=== PATIENT | female | born 1980 | race Caucasian/White ===

== ENCOUNTER 2016-03-26 11:51 | Emergency (ER) | payer OTHER ==
[~2016-03-26] VITALS: Ht 172.7 cm; Wt 59.1 kg
[2016-03-26 11:56] VITALS: BP 132/84; PULSE 98; RESP 20; O2SAT 98
--- NOTE | 2016-03-26 12:06 | ED.REPORT ---
HPI-Psychiatric Illness Date of Service Mar 26, 2016 ED Provider: History of Present Illness: needs to get into a treatment place for meth. was going to do outpatient 1 year ago and outpatient treat at [facility]. yuly is primarycare. just started at [facility], before that [facility] in [place]. last use this am around 7 snort and smoke use since she was 21 with a 5 year span of being clean. was doing steady use for the last 2 years recent break up with boyfriend sad about that. was outside talking and she felt sister was not listing, she threatened to kill self and went into the bathroom and slit her wrist on the left. unknown tdap. . At present she does not feel she will harm self. Is on seroquel 300 mg in evening. New prescription with taper up starting on 03/15/2016. Has almost full bottle. Nursing Notes Chief Complaint: Psychiatric Complaint Nursing Notes Reviewed: Yes Allergies: Coded Allergies: No Known Allergies (Unverified , 03/26/16) Scheduled Quetiapine Fumarate (Quetiapine Fumarate) 100 Mg Tablet 300 MG PO HS General Time Seen by MD: 12:05 Chief Complaint Other (want s treatment) Hx Obtained From: Patient Onset Occurred: 5 - 8 hours ago Risk-Psychiatric Illness Suicide Risk Stratification Suicide Risk Factors - Adult: : Alcohol use: Previous attempt (tried to cut wrists last july 2015, stayed with a friend, no treatment at the time): Substance abuseNo: Access to firearms, Close associate suicide, Family Hx of Suicide, Prior psych admission RF Statements: Risk factors reviewed Past Medical History Past Medical History Denies: Asthma, Diabetes mellitus Past Surgical History sinus and abortions Reports: Appendectomy Smoking History Current Every Day Smoker (1/2 pack a day for 15 years) Social History chews also 12 pouches a day for 2.5 years Alcohol Use: 1-3 per week Drug Use: Meth 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 Ambulatory Status Independent Review of Systems Basic Review of Systems Eyes: Vision NL, No discharge ENT: Hearing NL, No pain, No nasal congestion, No pharyngeal pain : No dysuria, No frequency Musculoskeletal: No extremity swelling, No extremity pain, Full range of motion , Joints NL Hematologic: No bleeding, No bruising Endocrine: No cold intolerance, No heat intolerance, No weight gain, No weight loss Allergy / Immune: No allergy Physical Exam Initial Vital Signs Vital Signs (First) Date Time Temp Pulse Resp B/P Pulse Ox O2 Delivery O2 Flow Rate FiO2 03/26/16 11:56 37 98 20 132/84 98 Room Air Initial VS: Reviewed, Vital signs normal Head / Eyes: Atraumatic, Normocephalic, PERRL ENT: Mucous membranes moist, Conjunctiva normal, No scleral icterus Neck: Supple, Non-tender, Full range of motion Respiratory: Breath sounds normal, Clear to auscultation, No respiratory distress Cardiovascular: Regular rate & rhythm, Heart sounds normal, Intact distal pulses Abdomen / GI: Soft, Non-tender, No guarding, No rebound, No distention Back: No CVA tenderness Lymphatic: No lymphadenopathy Extremities: Vascular intact, Neuro intact, No swelling, No tenderness Skin: Warm, Dry, No cyanosis General/Constitutional: Awake, Alert, No acute distress, Well appearing, Well developed, Well hydrated Neurologic: Oriented X3, Speech NL, No motor deficits Psychiatric: Affect NL, Mood NL, Not suicidal Respiratory / Chest: Atraumatic, Breath sounds NL, Breath sounds = bilat, No respiratory distress Cardiovascular: Heart rate NL, Regular rhythm, Heart sounds NL Interpretation & Diagnostics Lab Results Interpretation Test 03/26/16 12:30 Hold Urine Received (Received) Discharge & Departure Impression: Primary Impression: Substance abuse )( Condition at Discharge: Clear for drug rehab Patient Instructions: Methamphetamine Abuse (ED) Additional Instructions: Congratulations! You have been accepted at [facility]. You have your regular medications in a labeled bottle with your name on and enough for at least a week supply. Good [place] on your decision to remain clean. Referrals: Anastacia Garibay PA-C (PCP) EDSupervising Provider for APC: Jerad Woodard MD copies to: Anastacia Garibay PA-C, Sue ARNP Mar 26, 2016 12:06
[2016-03-26] MEDS ORDERED: QUET100T69 PO (12:09)
[2016-03-26] MEDS ORDERED: TdaP Vaccine 0.5 mL Inj IM ONE (12:30)
[2016-03-26] MEDS ORDERED: Influenza (Adult) Vaccine 0.5 mL Syringe IM ONE (12:45)
[2016-03-26 17:04] VITALS: BP 128/64; PULSE 68; RESP 20; O2SAT 98
== END 2016-03-26 17:05 | disposition home or self-care (01) ==
LOC: SED 11:51
DX: F15.20 Other stimulant dependence, uncomplicated (principal); S61.512A Laceration without foreign body of left wrist, initial encounter; X78.8XXA Intentional self-harm by other sharp object, initial encounter; Y92.002 Bathroom of unspecified non-institutional (private) residence as the place of occurrence of the external cause; Y93.89 Activity, other specified; Y99.8 Other external cause status; F17.200 Nicotine dependence, unspecified, uncomplicated; Z23 Encounter for immunization
CPT/HCPCS: 81002; 81025; 82075; 90471; 90472; 90715; 99284; Q2039